=== PATIENT | female | born 2000 | race Caucasian/White ===

== ENCOUNTER 2021-08-14 23:04 | Emergency (ER) | payer OTHER ==
[2021-08-15 02:55] LABS: ALBUMIN 3.5 g/dL (3.4-5.0); BILIRUBIN - TOTAL 0.3 mg/dL (0.2-1.0); BUN/CREAT RATIO (CALC) 13.2 RATIO; CREATININE 0.53 mg/dL (0.51-0.95); GLOBULIN (CALCULATION) 3.9 g/dL; POTASSIUM 3.5 mmol/L (3.5-5.1); TOTAL PROTEIN 7.4 g/dL (6.4-8.2)
[2021-08-15 03:08] LABS: BASOPHIL 0.2 % (0-2); EOSINOPHIL 0.2 % (0-5); HCT 38.9 % (37.0-47.0); HGB 12.5 g/dl (12.5-16.0); LYMPHOCYTE 8.8 % (15-48); MCHC 32.1 g/dL (32.0-36.0); MCV 90.3 fL (78.0-100.0); MONOCYTE 5.2 % (0-12); MPV 11.1 fL (6.0-9.5); NEUTROPHIL 85.2 % (41-80); NRBC 0; PLT 317 K/uL (150-400); RBC 4.31 M/uL (4.20-5.40); RDW 12.4 % (11.5-14.0); WBC 12.6 K/uL (4.0-10.5)
[2021-08-15 03:22] LABS: BILIRUBIN NEGATIVE (NEGATIVE); BLOOD NEGATIVE Ery/uL (NEGATIVE); CLARITY CLEAR (CLEAR); COLOR YELLOW (YELLOW); GLUCOSE (U) NORMAL (NORMAL); LEUKOCYTES NEGATIVE Leu/uL (NEGATIVE); NITRITE NEGATIVE (NEGATIVE); PROTEIN NEGATIVE (NEGATIVE); SPECIFIC GRAVITY 1.025 (1.001-1.030); pH 6.5 (5.0-9.0)
[2021-08-15 04:10] LABS: CORONAVIRUS 2019 SARS-COV-2 NEGATIVE (NEGATIVE); INFLUENZA A NAA NEGATIVE (NEGATIVE)
== END 2021-08-15 05:12 | disposition home or self-care (01) ==
LOC: FER 23:04
PROVIDERS: Internal Medicine
DX: O99.891 Other specified diseases and conditions complicating pregnancy (principal); R11.2 Nausea with vomiting, unspecified; R42 Dizziness and giddiness; Z3A.09 9 weeks gestation of pregnancy; Z20.822 Contact with and (suspected) exposure to COVID-19
CPT/HCPCS: 36415; 80053; 81003; 83690; 83735; 84145; 85025; J2405; J7030; J7040; U0002